=== PATIENT | male | born 1980 | race Caucasian/White ===

== ENCOUNTER 2018-10-30 16:41 | Emergency (ER) | payer OTHER ==
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
[2018-10-30] MEDS ORDERED: Tetracaine HCl/PF 0.5% 4 ML Bottle EYERT ONE (17:01)
[2018-10-30] MEDS ORDERED: Erythromycin Base 0.5% Ophth Oint 1 GM Tube EYELF ONE (17:16)
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
== END 2018-10-30 18:35 | disposition home or self-care (01) ==
LOC: MW.ED 16:41
DX: S05.02XA Injury of conjunctiva and corneal abrasion without foreign body, left eye, initial encounter (principal); S49.91XA Unspecified injury of right shoulder and upper arm, initial encounter; V49.49XA Driver injured in collision with other motor vehicles in traffic accident, initial encounter; Y92.410 Unspecified street and highway as the place of occurrence of the external cause
CPT/HCPCS: 70450; 71046; 72125; 73030; 73080; 99284; A9270